=== PATIENT | female | born 1995 | race Two or more races ===

== ENCOUNTER 2018-05-08 09:32 | Emergency (ER) | payer SELFPAY ==
[~2018-05-08] VITALS: Ht 157.5 cm; Wt 44.6 kg
[2018-05-08 10:05] LABS: Basophils # (auto) 0 uL; Basophils % (auto) 0.5 % (0.0-2.0); Eosinophils # (auto) 0 uL; Eosinophils % (auto) 0.2 % (0.0-7.0); Hematocrit 43.1 % (36.0-46.0); Hemoglobin 14.7 g/dL (12.2-16.2); Lymphocytes # (auto) 1.5 uL; Mean Corpuscular Hemoglobin 30.4 pg (28.0-32.0); Mean Corpuscular Hgb Conc. 34.2 g/dL (32.0-36.0); Mean Corpuscular Volume 88.9 fL (80.0-100.0); Monocytes # (auto) 0.5 uL; Monocytes % (auto) 5.4 % (0.0-12.0); Neutrophils % (auto) 76.9 % (37.0-80.0); Nucleated Red Blood Cells % 0.1 %; Platelet Count (auto) 256 10^3/uL (140-450); Red Blood Cells 4.85 10^6/uL (4.0-5.20); Red Cell Distribution Width 13.8 % (11.8-14.3)
[2018-05-08] MEDS ORDERED: SODIUM CHLORIDE 0.9% 1,000 ML IV ONE ×2 (10:07)
[2018-05-08] MEDS ORDERED: PROCHLORPERAZINE EDISYLATE 5 MG/ML 2ML VIAL IV ONE (10:15)
[2018-05-08 10:29] LABS: Urine Bacteria FEW /hpf (None Seen); Urine Blood Negative /uL (Negative); Urine Specific Gravity 1.017 (1.001-1.035); Urine WBC 2 /hpf (0 - 5)
[2018-05-08 10:30] LABS: Alanine Aminotransferase 14 U/L (13-56); Albumin 4.4 g/dL (3.4-5.0); Anion Gap 6 (5-15); Blood Urea Nitrogen 9 mg/dL (7-18); Calcium 8.7 mg/dL (8.5-10.1); Carbon Dioxide 25 mmol/L (21-32); Chloride 105 mmol/L (98-107); Glucose 89 mg/dL (74-106); Potassium 3.5 mmol/L (3.5-5.1); Sodium 136 mmol/L (136-145)
[2018-05-08 10:33] LABS: Alkaline Phosphatase 50 U/L (45-117); Aspartate Aminotransferase 9 U/L (15-37); BUN/Creatinine Ratio 13.2; Bilirubin, Total 1.2 mg/dL (0.2-1.0); GFR African American > 60 mL/min; GFR Non-African American > 60 mL/min; Total Protein 7.7 g/dL (6.4-8.2)
[2018-05-08] MEDS ORDERED: PROMETHAZINE HCL 25 MG/ML 1ML IV ONE (11:15)
[2018-05-08 11:16] VITALS: BP 146/79
[2018-05-08] MEDS ORDERED: CEPHALEXIN 250 MG CAP PO ONE (11:30)
== END 2018-05-08 12:24 | disposition home or self-care (01) ==
LOC: ER 09:32
DX: O23.41 Unspecified infection of urinary tract in pregnancy, first trimester (principal); O99.321 Drug use complicating pregnancy, first trimester; F12.10 Cannabis abuse, uncomplicated; Z3A.01 Less than 8 weeks gestation of pregnancy
CPT/HCPCS: 36415; 80053; 81001; 81025; 84702; 85025; 96361; 96374; 99283; J0780; J2550

== ENCOUNTER 2018-11-29 04:32 | Inpatient (IN) | payer BC ==
[~2018-11-29] VITALS: Ht 157.5 cm; Wt 62.6 kg
[2018-11-29] MEDS ORDERED: BETAMETHASONE ACET (6MG/ML) 5ML VIAL IM ONE ×2 (05:00→20:30)
[2018-11-29] MEDS ORDERED: LACTATED RINGER'S 1,000 ML IV SCH (05:00)
[2018-11-29] MEDS ORDERED: AMPICILLIN SOD 2GM INJ 2 GM in SODIUM CHL 0.9% 100 ML IV ONE (05:00)
[2018-11-29] MEDS ORDERED: PREN-153 OR (05:02)
[2018-11-29] MEDS ORDERED: AMPICILLIN SOD 1 GM VL ONE (05:06)
[2018-11-29 05:32] LABS: Basophils # (auto) 0.1 uL; Basophils % (auto) 0.9 % (0.0-2.0); Eosinophils # (auto) 0.1 uL; Eosinophils % (auto) 0.9 % (0.0-7.0); Hematocrit 29.3 % (36.0-46.0); Hemoglobin 9.5 g/dL (12.2-16.2); Lymphocytes # (auto) 2.8 uL; Lymphocytes % (auto) 33.7 % (10.0-50.0); Mean Corpuscular Hemoglobin 24.2 pg (28.0-32.0); Mean Corpuscular Hgb Conc. 32.5 g/dL (32.0-36.0); Mean Corpuscular Volume 74.6 fL (80.0-100.0); Monocytes # (auto) 0.8 uL; Neutrophils # (auto) 4.6 uL; Neutrophils % (auto) 54.5 % (37.0-80.0); Nucleated Red Blood Cells % 0.1 %; Platelet Count (auto) 297 10^3/uL (140-450); Red Blood Cells 3.93 10^6/uL (4.0-5.20); Red Cell Distribution Width 17.9 % (11.8-14.3); White Blood Cell 8.4 10^3/uL (4.4-10.8)
[2018-11-29 05:42] LABS: Urine Bacteria FEW /hpf (None Seen); Urine Blood 1+ /uL (Negative); Urine Hyaline Cast FEW /lpf (0 - 2); Urine Mucus FEW (None Seen); Urine Specific Gravity 1.011 (1.001-1.035); Urine WBC 8 /hpf (0 - 5)
[2018-11-29 05:49] LABS: INR < 0.93 (0.9-1.15); Partial Thromboplastin Time 26.6 sec (23.64-32.05)
[2018-11-29 05:51] LABS: Albumin 2.3 g/dL (3.4-5.0); Calcium 8.5 mg/dL (8.5-10.1); Potassium 3.8 mmol/L (3.5-5.1)
[2018-11-29 05:54] LABS: BUN/Creatinine Ratio 15.8; Bilirubin, Total 0.3 mg/dL (0.2-1.0); Total Protein 6.3 g/dL (6.4-8.2)
[2018-11-29 05:56] LABS: Alcohol, Urine < 3.0 mg/dL (0-5); Amphetamine Screen, Urine NEGATIVE (NEGATIVE); Barbiturate Scree,Urine NEGATIVE (NEGATIVE); Benzodiazephine Screen, Urine NEGATIVE (NEGATIVE); Cannabinoid Screen, Urine POSITIVE (NEGATIVE); Cocaine Screen, Urine NEGATIVE (NEGATIVE); Opiate Scree,Urine NEGATIVE (NEGATIVE); Phencyclidine Screen, Urine NEGATIVE (NEGATIVE)
[2018-11-29] MEDS ORDERED: LACT. RINGERS/OXYTOCIN 20UNITS 1,000 ML IV SCH ×2 (06:19→22:33)
[2018-11-29] MEDS ORDERED: LIDOCAINE 2%HCL (LOCAL ANESTH.) INJ 20ML MDV ID PRN (06:30)
[2018-11-29] MEDS ORDERED: PHISODERM TOP SOLN 240ML BTL TOP PRN (06:30)
[2018-11-29] MEDS ORDERED: hydrOXYzine HCL 25 MG/ML VL IM ONE (10:45)
[2018-11-29] MEDS ORDERED: BUTORPHANOL TARTRATE 2 MG/1 ML VIAL IV ONE (11:00)
[2018-11-29] MEDS ORDERED: AMPICILLIN INJ 1 GM in SODIUM CHL 0.9% 50 ML IV SCH (11:00)
[2018-11-29] MEDS ORDERED: ceFAZolin 1GM/50ML 50 ML IV SCH (12:30)
[2018-11-29] MEDS ORDERED: BUTORPHANOL TARTRATE 2 MG/1 ML VIAL IV PRN (15:30)
[2018-11-29] MEDS: WITCH HAZEL-GLYCERIN PAD TOP PRN (16:04)
[2018-11-29] MEDS: DERMOPLAST 60ML BOTTLE TOP PRN (16:04)
[2018-11-29] MEDS ORDERED: LACTATED RINGER'S 1,000 ML IV ONE (19:36)
[2018-11-29] MEDS ORDERED: ePHEDrine SULFATE 50 MG/ML AMP IV ONE (19:45)
[2018-11-29] MEDS ORDERED: fentaNYL W ROPIVACAINE 150 ML EPI SCH (19:45)
[2018-11-29] MEDS ORDERED: fentaNYL CITRATE 100 MCG/2 ML VL IV ONE (19:45)
[2018-11-29] MEDS ORDERED: NALOXONE HCL 0.4 MG/ML VIAL IV ONE (19:45)
[2018-11-29] MEDS ORDERED: LIDOCAINE HCL 2 %PF INJ 10ML AMP IJ ONE (19:45)
[2018-11-29] MEDS ORDERED: LACT. RINGERS/OXYTOCIN 20UNITS 500 ML IV ONE (21:33)
[2018-11-29] MEDS ORDERED: DOCUSATE CALCIUM 240 MG CAP PO SCH (22:00)
[2018-11-29] MEDS: IBUPROFEN 600 MG TAB PO PRN (22:01)
[2018-11-30 03:00] VITALS: BP 93/54
[2018-11-30] MEDS: IBUPROFEN 600 MG TAB PO PRN ×4 (04:26→23:34)
[2018-11-30] MEDS ORDERED: TETANUS-DIPTH-ACEL PERTUSSIS 0.5ML SYRG IM ONE (04:30)
[2018-11-30] MEDS ORDERED: BETAMETHASONE ACET (6MG/ML) 5ML VIAL IM ONE (05:00)
[2018-11-30 06:07] LABS: RPR Non Reactive (Non Reactive)
[2018-11-30] MEDS: ACETAMINOPHEN 325 MG TAB PO PRN ×2 (06:47→14:56)
[2018-11-30] MEDS: DOCUSATE SOD 100 MG CAP PO SCH ×2 (10:11→23:34)
[2018-11-30 11:00] VITALS: BP 90/54
[2018-11-30 14:55] VITALS: BP 120/74
[2018-11-30 19:00] VITALS: BP 117/70
[2018-11-30 23:00] VITALS: BP 105/62
[2018-12-01 02:45] VITALS: BP 94/55
[2018-12-01] MEDS: ACETAMINOPHEN 325 MG TAB PO PRN (05:00)
[2018-12-01] MEDS: WITCH HAZEL-GLYCERIN PAD TOP PRN (05:46)
[2018-12-01] MEDS: DERMOPLAST 60ML BOTTLE TOP PRN (05:47)
[2018-12-01 07:05] VITALS: BP 100/62
[2018-12-01] MEDS: IBUPROFEN 600 MG TAB PO PRN (08:51)
[2018-12-01] MEDS: DOCUSATE SOD 100 MG CAP PO SCH (10:06)
[2018-12-01 11:30] VITALS: BP 126/73
[2018-12-01 11:40] VITALS: BP 126/73
== END 2018-12-01 11:40 | disposition home or self-care (01) | DRG 807 ==
LOC: LDRP 04:32 → OBSVTOIN 04:32 → LDRP 21:42
PROVIDERS: ADMIT Obstetrics & Gynecology; ATTEND Obstetrics & Gynecology
PROC: 10E0XZZ Delivery of Products of Conception, External Approach (ICD-10-PCS; principal; 2018-11-29)
PROC: 0HQ9XZZ Repair Perineum Skin, External Approach (ICD-10-PCS; 2018-11-29)
DX: O42.913 Preterm premature rupture of membranes, unspecified as to length of time between rupture and onset of labor, third trimester (principal); Z37.0 Single live birth; Z3A.34 34 weeks gestation of pregnancy; O70.0 First degree perineal laceration during delivery; Z23 Encounter for immunization
CPT/HCPCS: 36415; 59025; 59409; 76805; 80053; 80307; 81001; 81002; 84112; 85025; 85610; 85730; 86592; 86850; 86900; 86901; 90471; 90715; 96365; 96366; 96367; 96372; 96375; 96376; G0378; J0690; J2590; J3010

== ENCOUNTER → 2019-11-29 | Emergency (ER) | payer BC, OTHER ==
[~2019-11-29] VITALS: Ht 157.5 cm; Wt 54.4 kg
[~2019-11-29] MED LIST: PROMETHAZINE HCL 25 MG/ML 1ML IV ONE; SODIUM CHLORIDE 0.9% 1,000 ML IV ONE
[2019-11-29 07:14] LABS: Basophils # (auto) 0 10 ^3/uL (0-0.2); Basophils % (auto) 0.4 % (0.0-2.0); Eosinophils # (auto) 0 10 ^3/uL (0-0.8); Eosinophils % (auto) 0.1 % (0.0-7.0); Hematocrit 47.8 % (36.0-46.0); Hemoglobin 15.7 g/dL (12.2-16.2); Lymphocytes # (auto) 1.4 10 ^3/uL (0.4-5.4); Lymphocytes % (auto) 16.6 % (10.0-50.0); Mean Corpuscular Hemoglobin 29.5 pg (28.0-32.0); Mean Corpuscular Hgb Conc. 32.9 g/dL (32.0-36.0); Mean Corpuscular Volume 89.5 fL (80.0-100.0); Monocytes # (auto) 0.5 10 ^3/uL (0-1.3); Monocytes % (auto) 5.4 % (0.0-12.0); Neutrophils # (auto) 6.6 10 ^3/uL (1.6-8.6); Neutrophils % (auto) 77.5 % (37.0-80.0); Nucleated Red Blood Cells % 0.1 %; Platelet Count (auto) 262 10^3/uL (140-450); Red Blood Cells 5.34 10^6/uL (4.0-5.20); Red Cell Distribution Width 13.7 % (11.8-14.3); White Blood Cell 8.6 10^3/uL (4.4-10.8)
[2019-11-29 07:31] LABS: Albumin 4.7 g/dL (3.4-5.0); Calcium 9.5 mg/dL (8.5-10.1); Potassium 3.5 mmol/L (3.5-5.1)
[2019-11-29 07:32] LABS: BUN/Creatinine Ratio 11.8
[2019-11-29 07:36] LABS: Urine Bacteria FEW /hpf (None Seen); Urine Blood Negative /uL (Negative); Urine Mucus FEW (None Seen); Urine Specific Gravity 1.035 (1.001-1.035); Urine WBC 29 /hpf (0 - 5)
[2019-11-29 07:36] LABS: Bilirubin, Total 1.7 mg/dL (0.2-1.0); Total Protein 8.3 g/dL (6.4-8.2)
[2019-11-29 09:36] VITALS: BP 108/58
== END | disposition home or self-care (01) ==
LOC: ER 05:16
DX: O21.8 Other vomiting complicating pregnancy (principal); O23.41 Unspecified infection of urinary tract in pregnancy, first trimester; E86.0 Dehydration; Z3A.01 Less than 8 weeks gestation of pregnancy
CPT/HCPCS: 36415; 80053; 81001; 81025; 84702; 85025; 96361; 96374; 99285; J2550; J7030

== ENCOUNTER → 2019-12-07 | Emergency (ER) | payer OTHER ==
[~2019-12-07] VITALS: Ht 157.5 cm; Wt 45.4 kg
[~2019-12-07] MED LIST changes: +FAMOTIDINE (10MG/ML) 2ML VL IV ONE; +cefTRIAXone 1GM/50ML D5W 50 ML IV ONE
[2019-12-07 05:29] LABS: Urine Bacteria FEW /hpf (None Seen); Urine Blood Negative /uL (Negative); Urine Mucus FEW (None Seen); Urine Specific Gravity 1.027 (1.001-1.035); Urine WBC 10 /hpf (0 - 5)
[2019-12-07 07:51] LABS: Basophils # (auto) 0 10 ^3/uL (0-0.2); Basophils % (auto) 0.4 % (0.0-2.0); Eosinophils # (auto) 0 10 ^3/uL (0-0.8); Hemoglobin 15.7 g/dL (12.2-16.2); Lymphocytes # (auto) 1.6 10 ^3/uL (0.4-5.4); Lymphocytes % (auto) 14.2 % (10.0-50.0); Mean Corpuscular Hgb Conc. 34.1 g/dL (32.0-36.0); Monocytes # (auto) 0.7 10 ^3/uL (0-1.3); Monocytes % (auto) 6.5 % (0.0-12.0); Neutrophils # (auto) 8.8 10 ^3/uL (1.6-8.6); Neutrophils % (auto) 78.9 % (37.0-80.0); Platelet Count (auto) 306 10^3/uL (140-450); Red Blood Cells 5.23 10^6/uL (4.0-5.20); Red Cell Distribution Width 13.3 % (11.8-14.3); White Blood Cell 11.1 10^3/uL (4.4-10.8)
[2019-12-07 08:05] LABS: Albumin 4.6 g/dL (3.4-5.0); Calcium 9.3 mg/dL (8.5-10.1); Potassium 3.3 mmol/L (3.5-5.1)
[2019-12-07 08:09] LABS: BUN/Creatinine Ratio 8.6; Bilirubin, Total 1.3 mg/dL (0.2-1.0); Total Protein 8.3 g/dL (6.4-8.2)
[2019-12-07 10:25] VITALS: BP 118/76
== END | disposition home or self-care (01) ==
LOC: ER 04:59
DX: O21.8 Other vomiting complicating pregnancy (principal); O23.41 Unspecified infection of urinary tract in pregnancy, first trimester; Z3A.01 Less than 8 weeks gestation of pregnancy
CPT/HCPCS: 36415; 76705; 76801; 80053; 81001; 83690; 84702; 85025; 96361; 96365; 96375; 96376; 99284; J0696; J2550; J3490; J7030